=== PATIENT | male | born 1955 | race Caucasian/White ===

== ENCOUNTER → 2023-07-04 08:09 | Outpatient (REF) | payer OTHER, SELFPAY | LOC: DHCBC MAIN 08:09 | PROVIDERS: ATTENDING PHYSICIAN Internal Medicine Cardiovascular Disease; FAMILY PHYSICIAN Internal Medicine | DX: I21.3 ST elevation (STEMI) myocardial infarction of unspecified site (principal); I35.0 Nonrheumatic aortic (valve) stenosis; I77.810 Thoracic aortic ectasia | CPT/HCPCS: 93306 ==

== ENCOUNTER → 2023-07-15 06:22 | Day surgery (SDC) | payer OTHER, SELFPAY | LOC: GI 06:22 | PROVIDERS: ATTENDING PHYSICIAN Internal Medicine Gastroenterology | DX: Z12.11 Encounter for screening for malignant neoplasm of colon (principal); R19.5 Other fecal abnormalities; K57.30 Diverticulosis of large intestine without perforation or abscess without bleeding; K64.8 Other hemorrhoids; K62.1 Rectal polyp; D12.8 Benign neoplasm of rectum; D12.2 Benign neoplasm of ascending colon | CPT/HCPCS: 45385; 45380; 88305 ==

== ENCOUNTER → 2023-07-19 09:22 | Outpatient (REF) | payer OTHER, SELFPAY ==
[2023-07-19 10:01] LABS: % Basophils 1.3 % (0-2); % Eosinophils 4.5 % (0-6); % Immature Granulocytes 0.2 % (0-0.5); % Lymphocytes 29.4 % (20.5-51.1); % Neutrophils 53.6 % (42.2-75.2); Absolute Basophils 0.1 10^3/uL (0-0.2); Absolute Eosinophils 0.4 10^3/uL (0-0.7); Absolute Lymphocytes 2.4 10^3/uL (1.2-3.4); Absolute Monocytes 0.9 10^3/uL (0.1-0.6); Absolute Neutrophils 4.4 10^3/uL (1.4-6.5); Hematocrit 45.5 % (39.0-52.0); Hemoglobin 15.6 g/dL (13.0-18.0); Mean Corp Hgb Conc. 34.3 g/dL (33.0-37.0); Mean Corpuscular Hgb 33.3 pg (27.0-31.0); Mean Platelet Volume 10.2 fL (7.4-10.4); Nucleated Red Blood Cells % 0 % (-); Platelet Count 231 10^3/uL (130-400); Red Blood Cell Count 4.69 10^6/uL (4.70-6.10); White Blood Cell Count 8.2 10^3/uL (4.8-10.8)
[2023-07-19 13:49] LABS: ALT (SGPT) 36 U/L (0-50); AST (SGOT) 38 U/L (17-59); Albumin 4.8 g/dl (3.5-5.0); Alkaline Phosphatase 60 U/L (38-126); Blood Urea Nitrogen 14 mg/dl (9-20); Calcium 9.9 mg/dl (8.4-10.2); Carbon Dioxide 24 mmol/L (22-30); Chloride 103 mmol/L (98-107); Glucose 82 mg/dl (70-99); HDL Cholesterol 55 mg/dl; LDL Cholesterol, Calculated 51 mg/dl; Potassium 4.7 mmol/L (3.5-5.1); Sodium 139 mmol/L (135-145); Total Bilirubin 0.6 mg/dl (0.2-1.3); Total Cholesterol 136 mg/dl (50-199); Total Protein 7.4 g/dl (6.3-8.2); Triglyceride 153 mg/dl (10-149); Very Low Density Lipoprotein 30 mg/dl (0-30); eGFR > 60.00
== END ==
LOC: REG 09:22
PROVIDERS: ATTENDING PHYSICIAN Internal Medicine Cardiovascular Disease; FAMILY PHYSICIAN Internal Medicine
DX: I35.0 Nonrheumatic aortic (valve) stenosis (principal); E78.2 Mixed hyperlipidemia
CPT/HCPCS: 36415; 80053; 80061; 85025

== ENCOUNTER 2023-07-29 10:26 | Day surgery (SDC) | payer OTHER, SELFPAY ==
[2023-07-29] VITALS (7 sets, daily range): BP systolic 131–146; BP diastolic 74–84
[2023-07-29] MEDS: NSS 1000 IV (11:00)
--- NOTE | 2023-07-29 13:32 | ITS.CL.CATH ---
[facility] - Catheterization
Cardiac Catheterization
Procedure Report:
CARDIAC CATHETERIZATION REPORT
Date of Procedure: 07/29/2023
Referring: Ozzy Diop MD
Indication: Severe aortic stenosis
HEMODYNAMIC DATA
AO: 178/96
LV: Not done
LEFT VENTRICULOGRAPHY: Not done
CORONARY ANGIOGRAPHY
Dominance: Right
Left Main: Normal
LAD: 70% mid LAD stenosis with moderate to severe calcification with otherwise mild luminal irregularities
Circumflex: Mild luminal irregularities
RCA: Widely patent proximal stent with no restenosis (ALFRED 2019). There is 30% distal RCA stenosis just past the crux.
Closure Device: None-the procedure was performed via the left radial artery. Of note, we were able to access the right radial artery but we could not pass a soft wire more than several millimeters. Of note, the patient has known aortic occlusion
with axillo- bifemoral bypass
Radiation (mGy): 294
DAP (cm2.Gy): 30.9
Fluoroscopy time: 8.4 minutes
CONCLUSIONS
1: Systemic hypertension
2: Single-vessel CAD as described with calcified 70% mid LAD stenosis
3. Unable to cross aortic valve with a table J-wire. The valve is severely calcified and is severely stenotic by echocardiography.
4. This patient reports that he has no exertional dyspnea, exertional chest discomfort, syncope or near syncope, and denies exertional fatigue. He would be considered asymptomatic at this time and therefore would not be an appropriate candidate
for AVR. When symptoms develop he will need AVR/CABG x 1. Recommend every 6 month clinical evaluations with echo every 6-12 months
Copy to: Ozzy Diop MD, Petar Barron MD
Ever Clinton MD, [facility], [facility]
== END 2023-07-29 16:35 | disposition home or self-care (01) ==
LOC: CATH 10:26
PROVIDERS: ATTENDING PHYSICIAN Internal Medicine Cardiovascular Disease; FAMILY PHYSICIAN Internal Medicine; OTHER PHYSICIAN Internal Medicine Cardiovascular Disease
DX: I35.0 Nonrheumatic aortic (valve) stenosis (principal); I10 Essential (primary) hypertension; I25.10 Atherosclerotic heart disease of native coronary artery without angina pectoris; Z95.5 Presence of coronary angioplasty implant and graft; I25.2 Old myocardial infarction; E78.2 Mixed hyperlipidemia; F17.210 Nicotine dependence, cigarettes, uncomplicated; Z79.82 Long term (current) use of aspirin
CPT/HCPCS: 93454; C1894; Q9967

== ENCOUNTER → 2024-02-09 08:11 | Outpatient (REF) | payer OTHER, SELFPAY ==
[2024-02-09 11:59] LABS: PSA, Total - Screen 2.16 ng/ml (0.0-4.0)
== END ==
LOC: RCS 08:11
PROVIDERS: ATTENDING PHYSICIAN Internal Medicine Cardiovascular Disease; FAMILY PHYSICIAN Internal Medicine
DX: I35.0 Nonrheumatic aortic (valve) stenosis (principal); I25.10 Atherosclerotic heart disease of native coronary artery without angina pectoris; N40.0 Benign prostatic hyperplasia without lower urinary tract symptoms; Z00.01 Encounter for general adult medical examination with abnormal findings
CPT/HCPCS: 36415; 93306; G0103